=== PATIENT | female | born 1985 | race Two or more races ===

== ENCOUNTER 2017-09-12 05:07 | Inpatient (IN) | payer MEDICAID ==
[~2017-09-12 05:07] MED LIST: Lactated Ringers 1,000 ML IV SCH; Oxytocin/Lactated Ringers 10 UNIT/1,000 ML BAG IV SCH; Sodium Chloride 0.9% 10 ML Syringe FLUSH PRN
[2017-09-12] MEDS ORDERED: Metoclopramide 10 MG/2 ML SDV IVPUSH ONE (06:00)
[2017-09-12] MEDS ORDERED: Citric Acid/Sodium Citrate Solution 30 ML Cup PO ONE (06:00)
[2017-09-12] MEDS ORDERED: ceFAZolin 2 GM in Premix Bag 1 BAG IV ONE (06:00)
[2017-09-12] MEDS ORDERED: Diphtheria,Pertussis(Acell),Tetanus Vaccine 0.5 ML SDV IM ONE (06:29)
[2017-09-12] MEDS ORDERED: Bupivacaine 0.5% 30 ML SDV ONE (07:07)
[2017-09-12] MEDS ORDERED: Bupivacaine 0.75%/D5W 2 ML Amp ONE (07:15)
[2017-09-12] MEDS ORDERED: ceFAZolin 1 GM Vial ONE (07:16)
[2017-09-12] MEDS ORDERED: Morphine PF 10 MG/10 ML SDV ONE (07:16)
[2017-09-12] MEDS ORDERED: Oxytocin 10 Units/1 ML SDV ONE (07:19)
--- NOTE | 2017-09-12 07:42 | PCM.PREANE ---
Preanesthetic Assessment - Procedure Proposed Procedure: C. Section - Anesthesia/Transfusion/Family Hx Anesthesia History: Prior Anesthesia Without Reaction Family History of Anesthesia Reaction: No Transfusion History: No Prior Transfusion(s) Intubation History: Unknown - Review of Systems General: No Symptoms Pulmonary: No Symptoms Cardiovascular: No Symptoms Gastrointestinal: No Symptoms Neurological: No Symptoms Other: Reports: Diabetes (Gestational controlled with diet ) - Physical Assessment NPO Status Date: 09/11/17 NPO Status Time: 10:00 Pulse: 112 O2 Sat by Pulse Oximetry: 100 Respiratory Rate: 16 Vital Signs: Last Vital Signs Temp 36.9 C 09/12/17 01:26 Pulse Resp 16 09/12/17 01:26 BP 122/94 H 09/12/17 01:26 Pulse Ox 100 09/12/17 01:26 Height: 1.57 m Weight: 75.863 kg ASA Class: 2 Mental Status: Alert & Oriented x3 Airway Class: Mallampati = 1 Dentition: Reports: Normal Dentition Thyro-Mental Finger Breadths: 2 Mouth Opening Finger Breadths: 4 ROM/Head Extension: Full Lungs: Clear to Auscultation, Normal Respiratory Effort Cardiovascular: Regular Rate, Regular Rhythm - Allergies Allergies/Adverse Reactions: Allergies Allergy/AdvReac Type Severity Reaction Status Date / Time No Known Allergies Allergy Verified 09/12/17 01:25 - Blood Blood Available: No - Anesthesia Plan Pre-Op Medication Ordered: Antacids - Acknowledgements Anesthesia Type Planned: Spinal Pt an Appropriate Candidate for the Planned Anesthesia: Yes Alternatives and Risks of Anesthesia Discussed w Pt/Guardian: Yes Pt/Guardian Understands and Agrees with Anesthesia Plan: Yes PreAnesthesia Questionnaire Cardiovascular History: Reports: Hypertension 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: : 2 Para: 1 - HOME MEDS Home Medications: Home Meds Methyldopa 09/12/17 [History] Vit W-Ca,Fe,FA(<1 mg) [ Vitamins] 09/12/17 [History] - CURRENT (IN HOUSE) MEDS Current Meds: Current Medications Lactated Ringer's (Ringers, Lactated) 1,000 mls @ 125 mls/hr IV ASDIRECTED FER Oxytocin/Lactated Ringer's (Pitocin In Lr 10 Units/1,000 Ml) 10 unit in 1,000 mls @ 100 mls/hr IV ASDIRECTED FER; Protocol Sodium Chloride (Saline Flush) 10 ml FLUSH ASDIRECTED PRN PRN Reason: Keep Vein Open Discontinued Medications Bupivacaine HCl (Marcaine 0.5%) Confirm Administered Dose 30 ml .ROUTE .STK-MED ONE Stop: 09/12/17 07:08 Bupivacaine HCl/Dextrose (Marcaine 0.75% Spinal) Confirm Administered Dose 2 ml .ROUTE .STK-MED ONE Stop: 09/12/17 07:16 Cefazolin Sodium (Ancef) Confirm Administered Dose 2 gm .ROUTE .STK-MED ONE Stop: 09/12/17 07:17 Citric Acid/Sodium Citrate (Bicitra Solution) 30 ml PO ONETIME ONE Stop: 09/12/17 06:01 Diphtheria/Tetanus/Acell Pertussis (Adacel) 0.5 ml IM .ONCE ONE Stop: 09/12/17 06:30 Cefazolin Sodium/Dextrose 2 gm (/ Premix) 50 mls @ 100 mls/hr IV ONETIME ONE Stop: 09/12/17 06:29 Metoclopramide HCl (Reglan) 10 mg IVPUSH ONETIME ONE Stop: 09/12/17 06:01 Morphine Sulfate (Duramorph Pf) Confirm Administered Dose 10 mg .ROUTE .STK-MED ONE Stop: 09/12/17 07:17 Oxytocin (Pitocin) Confirm Administered Dose 20 unit .ROUTE .STK-MED ONE Stop: 09/12/17 07:20
[2017-09-12] MEDS ORDERED: Phenylephrine/Normal Saline 100 MCG/ML 10 ML Syringe ONE (08:10)
[2017-09-12] MEDS ORDERED: Ondansetron 4 MG/2 ML SDV ONE (08:10)
[2017-09-12] MEDS ORDERED: Ketorolac 30 MG/ML SDV ONE (08:15)
[2017-09-12] MEDS ORDERED: Lactated Ringers 1,000 ML ONE ×2 (08:38)
[2017-09-12] MEDS ORDERED: diphenhydrAMINE 50 MG/ML SDV IVPUSH PRN ×2 (09:03→12:56)
[2017-09-12] MEDS ORDERED: Ondansetron 4 MG/2 ML SDV IVPUSH PRN (09:03)
--- NOTE | 2017-09-12 09:03 | PCM.POSTAN ---
POST ANESTHESIA ASSESSMENT - MENTAL STATUS Mental Status: Alert - VITAL SIGNS Pulse Rate: 79 SaO2: 99 Resp Rate: 17 Blood Pressure: 113/60 Temperature: 97.4 C - RESPIRATORY Respiratory Status: Respiratory Rate WNL, Airway Patent, O2 Saturation Stable - CARDIOVASCULAR CV Status: Pulse Rate WNL, Blood Pressure Stable - GASTROINTESTINAL GI Status: No Symptoms - PAIN Pain Score: 0 - POST OP HYDRATION Hydration Status: Adequate & Stable
--- NOTE | 2017-09-12 09:08 | PCM.OPNOTE ---
- General Post-Op/Procedure Note Date of Surgery/Procedure: 09/12/17 Operative Procedure(s): repeat Findings: Viable female, weight 6#7oz, 8/9 at 0840 Pre Op Diagnosis: gestational diabetes, hypertension Post-Op Diagnosis: Same Anesthesia Technique: Spinal Primary Surgeon: Ada Ortiz Bat Carrier: Olman Oreilly Fluid Replacement, Intraop: 1,500 Output, Urine Amount: 50 EBL in mLs: 800 Complications: None Condition: Good Free Text/Narrative:: The patient was taken to the operating room where spinal anesthesia was initiated and dosed to surgical levels without difficulty. The patient was prepped and draped in the usual sterile fashion in the dorsal supine position with a leftward tilt. A Pfannenstiel skin incision was made with the scalpel and carried through to the underlying layer of fascia. The fascia was incised in the midline and extended laterally using Mckenzie scissors. Hamlet clamps were used to elevate the superior aspect of the fascial incision, which was elevated , and the underlying rectus muscles were dissected off bluntly and using Mckenzie scissors. Attention was then turned to the inferior aspect of the fascial incision, which in similar fashion was grasped with Hamlet clamps, elevated, and the underlying rectus muscles were dissected off bluntly and using the mckenzie. The rectus muscles were dissected in the midline. The peritoneum was entered bluntly; this incision was extended superiorly and inferiorly with good visualization of the bladder. The bladder blade was inserted. The vesicouterine peritoneum was identified and entered sharply using Metzenbaum scissors. This incision was extended laterally and the bladder flap was created digitally. The bladder blade was reinserted. The lower uterine segment was incised in a transverse fashion using the scalpel and with digital traction. Clear fluid was noted. The was subsequently delivered by flexing the head to the incision. Body and shoulders followed without difficulty. The cord was clamped and cut. The was subsequently handed to the awaiting extruding machine operator whose presence had been requested.. The placenta was delivered spontaneously intact with a three-vessel cord noted. The uterus was exteriorized and cleared of all clots and debris. The uterine incision was repaired in 2 layers using 0 monocryl. Hemostasis was visualized. Hemostasis was visualized bilaterally. The uterus was returned to the abdomen. The uterine incision was reexamined and it was noted to be hemostatic. The pelvis was copiously irrigated. The fascia was closed with 1 PDS suture, and the skin was closed with 3-0 monocryl. Sponge, lap, and instrument counts were correct x2. The patient was stable at the completion of the procedure and was subsequently transferred to the recovery room in stable condition.
[2017-09-12] MEDS ORDERED: Lanolin 100% Cream 7 GM Tube TOP PRN (12:56)
[2017-09-12] MEDS ORDERED: Acetaminophen/oxyCODONE 325-5 MG Tab PO PRN (12:56)
[2017-09-12] MEDS ORDERED: Naloxone 0.4 MG/ML SDV IVPUSH PRN (12:56)
[2017-09-12] MEDS ORDERED: Dextrose 5%-Lactated Ringers 1,000 ML IV SCH (12:56)
[2017-09-12] MEDS ORDERED: ePHEDrine 50 MG/ML SDV IVPUSH PRN (12:56)
[2017-09-12] MEDS: Ketorolac 30 MG/ML SDV IVPUSH SCH ×2 (15:14→21:03)
[2017-09-13] MEDS: Ketorolac 30 MG/ML SDV IVPUSH SCH (03:01)
--- NOTE | 2017-09-13 07:24 | PCM.PNPP ---
- General Info Date of Service: 09/13/17 Functional Status: Reports: Pain Controlled, Tolerating Diet - Review of Systems General: Reports: No Symptoms HEENT: Reports: No Symptoms Pulmonary: Reports: No Symptoms Cardiovascular: Reports: No Symptoms Gastrointestinal: Reports: No Symptoms Genitourinary: Reports: No Symptoms Musculoskeletal: Reports: No Symptoms Skin: Reports: No Symptoms Neurological: Reports: No Symptoms Psychiatric: Reports: No Symptoms - General Info Date of Service: 09/13/17 - Patient Data Vital Signs - Most Recent: Last Vital Signs Temp 36.8 C 09/13/17 03:06 Pulse 84 09/13/17 03:06 Resp 16 09/13/17 06:51 BP 128/87 09/13/17 03:06 Pulse Ox 99 09/13/17 06:51 Weight - Most Recent: 75.863 kg I&O - Last 24 Hours: Intake & Output 09/12/17 09/13/17 09/13/17 22:59 06:59 14:59 Intake Total 1740 Output Total 50 Balance 1690 Lab Results - Last 24 Hours: Laboratory Results - last 24 hr 09/13/17 Range/Units 06:10 WBC 8.28 (3.98-10.04) K/mm3 RBC 3.14 L (3.98-5.22) M/mm3 Hgb 8.8 L (11.2-15.7) gm/L Hct 27.8 L (34.1-44.9) % MCV 88.5 (79.4-94.8) fl MCH 28.0 (25.6-32.2) pg MCHC 31.7 L (32.2-35.5) g/dl RDW Std Deviation 46.3 (36.4-46.3) fL Plt Count 183 (182-369) K/mm3 MPV 12.3 (9.4-12.3) fl Neut % (Auto) 65.3 (34.0-71.1) % Lymph % (Auto) 26.8 (19.3-51.7) % Arthur % (Auto) 6.8 (4.7-12.5) % Eos % (Auto) 0.6 L (0.7-5.8) Baso % (Auto) 0.4 (0.1-1.2) % Neut # (Auto) 5.41 (1.56-6.13) K/mm3 Lymph # (Auto) 2.22 (1.18-3.74) K/mm3 Arthur # (Auto) 0.56 H (0.24-0.36) K/mm3 Eos # (Auto) 0.05 (0.04-0.36) K/mm3 Baso # (Auto) 0.03 (0.01-0.08) K/mm3 Med Orders - Current: Current Medications Diphenhydramine HCl (Benadryl) 25 mg IVPUSH Q6H PRN PRN Reason: Itching or Nausea Emollient Ointment (Lansinoh Hpa) 0 gm TOP ASDIRECTED PRN PRN Reason: Sore Nipples Ephedrine Sulfate (Ephedrine Sulfate) 5 mg IVPUSH SEECOMMENT PRN PRN Reason: Other Ibuprofen (Motrin) 600 mg PO Q6H PRN PRN Reason: mild pain or fever Naloxone HCl (Narcan) 0.1 mg IVPUSH SEECOMMENT PRN PRN Reason: Respiratory Depression Oxycodone/Acetaminophen (Percocet 325-5 Mg) 2 tab PO Q6H PRN PRN Reason: Pain (moderate 4-6) Discontinued Medications Bupivacaine HCl (Marcaine 0.5%) Confirm Administered Dose 30 ml .ROUTE .STK-MED ONE Stop: 09/12/17 07:08 Last Admin: 09/12/17 08:13 Dose: 20 ml Bupivacaine HCl/Dextrose (Marcaine 0.75% Spinal) Confirm Administered Dose 2 ml .ROUTE .STK-MED ONE Stop: 09/12/17 07:16 Cefazolin Sodium (Ancef) Confirm Administered Dose 2 gm .ROUTE .STK-MED ONE Stop: 09/12/17 07:17 Citric Acid/Sodium Citrate (Bicitra Solution) 30 ml PO ONETIME ONE Stop: 09/12/17 06:01 Last Admin: 09/13/17 01:26 Dose: Not Given Diphenhydramine HCl (Benadryl) 12.5 mg IVPUSH Q6H PRN PRN Reason: pruritis Stop: 09/12/17 11:30 Diphtheria/Tetanus/Acell Pertussis (Adacel) 0.5 ml IM .ONCE ONE Stop: 09/12/17 06:30 Cefazolin Sodium/Dextrose 2 gm (/ Premix) 50 mls @ 100 mls/hr IV ONETIME ONE Stop: 09/12/17 06:29 Last Admin: 09/13/17 01:26 Dose: Not Given Lactated Ringer's (Ringers, Lactated) 1,000 mls @ 125 mls/hr IV ASDIRECTED [facility] Oxytocin/Lactated Ringer's (Pitocin In Lr 10 Units/1,000 Ml) 10 unit in 1,000 mls @ 100 mls/hr IV ASDIRECTED [facility]; Protocol Lactated Ringer's (Ringers, Lactated) Confirm Administered Dose 1,000 mls @ as directed .ROUTE .STK-MED ONE Stop: 09/12/17 08:39 Lactated Ringer's (Ringers, Lactated) Confirm Administered Dose 1,000 mls @ as directed .ROUTE .STK-MED ONE Stop: 09/12/17 08:39 Dextrose/Lactated Ringer's (Dextrose 5%-Lactated Ringers) 1,000 mls @ 125 mls/ hr IV ASDIRECTED [facility] Stop: 09/12/17 20:55 Last Admin: 09/12/17 16:11 Dose: 125 mls/hr Ketorolac Tromethamine (Toradol) Confirm Administered Dose 30 mg .ROUTE .STK- MED ONE Stop: 09/12/17 08:16 Ketorolac Tromethamine (Toradol) 30 mg IVPUSH Q6H [facility] Stop: 09/13/17 03:01 Last Admin: 09/13/17 03:01 Dose: 30 mg Lidocaine HCl (Xylocaine-Mpf 1%) 5 ml .ROUTE .STK-MED ONE Stop: 09/12/17 07:18 Metoclopramide HCl (Reglan) 10 mg IVPUSH ONETIME ONE Stop: 09/12/17 06:01 Last Admin: 09/13/17 01:26 Dose: Not Given Morphine Sulfate (Duramorph Pf) Confirm Administered Dose 10 mg .ROUTE .STK-MED ONE Stop: 09/12/17 07:17 Ondansetron HCl (Zofran) Confirm Administered Dose 4 mg .ROUTE .STK-MED ONE Stop: 09/12/17 08:11 Ondansetron HCl (Zofran) 4 mg IVPUSH ONETIME PRN PRN Reason: Nausea/Vomiting Stop: 09/12/17 11:30 Oxytocin (Pitocin) Confirm Administered Dose 20 unit .ROUTE .STK-MED ONE Stop: 09/12/17 07:20 Phenylephrine HCl (Phenylephrine In Ns 100 Mcg/Ml) Confirm Administered Dose 1 mg .ROUTE .STK-MED ONE Stop: 09/12/17 08:11 Sodium Chloride (Saline Flush) 10 ml FLUSH ASDIRECTED PRN PRN Reason: Keep Vein Open - Interaction Infant Disposition, : at Bedside Support Person: Significant Other - Recovery Exam Fundal Tone: Firm Fundal Level: At Umbilicus Fundal Placement: Midline Lochia Amount: Small Lochia Color: Rubra/Red Perineum Description: Intact, Minimal Bruising/Swelling Episiotomy/Laceration: None Bladder Status: Indwelling Catheter in Place - Exam General: Alert, Oriented HEENT: Pupils Equal Neck: Supple Lungs: Clear to Auscultation, Normal Respiratory Effort Cardiovascular: Regular Rate, Regular Rhythm GI/Abdominal Exam: Normal Bowel Sounds, Soft, Non-Tender, No Organomegaly, No Distention, No Abnormal Bruit, No Mass, Pelvis Stable Extremities: Normal Inspection, Normal Range of Motion, Non-Tender, No Pedal Edema, Normal Capillary Refill Skin: Warm, Dry, Intact Wound/Incisions: Healing Well Neurological: No New Focal Deficit Psy/Mental Status: Alert, Normal Affect, Normal Mood - Problem List Review Problem List Initiated/Reviewed/Updated: Yes - My Orders Last 24 Hours: My Active Orders 09/12/17 06:30 Vaccines to be Administered [RC] PER UNIT ROUTINE 09/12/17 12:56 Communication Order [RC] PER UNIT ROUTINE Communication Order [RC] PER UNIT ROUTINE Communication Order [RC] PER UNIT ROUTINE Notify Provider Intake and Out [RC] ASDIRECTED Vital Signs [RC] 03,09,15,21 Acetaminophen/oxyCODONE [Percocet 325-5 MG] 2 tab PO Q6H PRN Lanolin [Lansinoh HPA] See Dose Instructions TOP ASDIRECTED PRN Naloxone [Narcan] 0.1 mg IVPUSH SEECOMMENT PRN diphenhydrAMINE [Benadryl] 25 mg IVPUSH Q6H PRN ePHEDrine [ePHEDrine Sulfate] 5 mg IVPUSH SEECOMMENT PRN Assess Lochia [WOMSER] Per Unit Routine Assess Uterine Involution [WOMSER] Per Unit Routine Medication Administration Instruction [OM.PC] Routine 09/12/17 Lunch Regular Diet [DIET] 09/13/17 08:56 Urinary Catheter Removal [RC] Per Unit Routine 09/13/17 09:00 Ibuprofen [Motrin] 600 mg PO Q6H PRN - Assessment Assessment:: POD1 Doing great. Jimenez out this am Continue regular diet. Blood pressures good off meds so can continue without for now. Anticipate home tomorrow
[2017-09-13] MEDS ORDERED: Ibuprofen 600 MG Tab PO PRN (09:00)
--- NOTE | 2017-09-13 21:27 | PCM48HPAN ---
Post Anesthesia Note - EVALUATION WITHIN 48HRS OF ANESTHETIC Vital Signs in Normal Range: Yes Patient Participated in Evaluation: Yes Respiratory Function Stable: Yes Airway Patent: Yes Cardiovascular Function Stable: Yes Hydration Status Stable: Yes Pain Control Satisfactory: Yes Nausea and Vomiting Control Satisfactory: Yes Mental Status Recovered: Yes Pulse Rate: 98 Resp Rate: 16 Temperature: 36.6 C Blood Pressure: 135/84
--- NOTE | 2017-09-14 06:59 | PCM.DCSUM1 ---
Discharge Summary - Discharge Data Discharge Date: 09/14/17 Discharge Disposition: Home, Self-Care 01 Condition: Good - Patient Summary/Data Operative Procedure(s) Performed: repeat - Patient Instructions Diet: Usual Diet as Tolerated Activity: No Strenuous Activities Activity, Other: pelvic rest Driving: May Drive Today Notify Provider of: Fever, Increased Pain - Discharge Plan Home Medications: Home Meds Methyldopa 09/12/17 [History] Vit W-Ca,Fe,FA(<1 mg) [ Vitamins] 09/12/17 [History] Patient Handouts: Exclusive , Delivery, Care After, Breast Engorgement Referrals: Ada Ortiz MD [Physician] - (2 weeks and 6 weeks) - Patient Data Vitals - Most Recent: Last Vital Signs Temp 36.6 C 09/14/17 03:00 Pulse 98 09/13/17 21:27 Resp 16 09/14/17 03:00 BP 117/72 09/14/17 03:00 Pulse Ox 99 09/14/17 03:00 Weight - Most Recent: 75.863 kg I&O - Last 24 hours: Intake & Output 09/13/17 09/13/17 09/14/17 14:59 22:59 06:59 Intake Total 120 120 Balance 120 120 Med Orders - Current: Current Medications Diphenhydramine HCl (Benadryl) 25 mg IVPUSH Q6H PRN PRN Reason: Itching or Nausea Emollient Ointment (Lansinoh Hpa) 0 gm TOP ASDIRECTED PRN PRN Reason: Sore Nipples Ephedrine Sulfate (Ephedrine Sulfate) 5 mg IVPUSH SEECOMMENT PRN PRN Reason: Other Ibuprofen (Motrin) 600 mg PO Q6H PRN PRN Reason: mild pain or fever Naloxone HCl (Narcan) 0.1 mg IVPUSH SEECOMMENT PRN PRN Reason: Respiratory Depression Oxycodone/Acetaminophen (Percocet 325-5 Mg) 2 tab PO Q6H PRN PRN Reason: Pain (moderate 4-6) Discontinued Medications Bupivacaine HCl (Marcaine 0.5%) Confirm Administered Dose 30 ml .ROUTE .STK-MED ONE Stop: 09/12/17 07:08 Last Admin: 09/12/17 08:13 Dose: 20 ml Bupivacaine HCl/Dextrose (Marcaine 0.75% Spinal) Confirm Administered Dose 2 ml .ROUTE .STK-MED ONE Stop: 09/12/17 07:16 Cefazolin Sodium (Ancef) Confirm Administered Dose 2 gm .ROUTE .[facility]-MED ONE Stop: 09/12/17 07:17 Citric Acid/Sodium Citrate (Bicitra Solution) 30 ml PO ONETIME ONE Stop: 09/12/17 06:01 Last Admin: 09/13/17 01:26 Dose: Not Given Diphenhydramine HCl (Benadryl) 12.5 mg IVPUSH Q6H PRN PRN Reason: pruritis Stop: 09/12/17 11:30 Diphtheria/Tetanus/Acell Pertussis (Adacel) 0.5 ml IM .ONCE ONE Stop: 09/12/17 06:30 Last Admin: 09/13/17 17:53 Dose: Not Given Cefazolin Sodium/Dextrose 2 gm (/ Premix) 50 mls @ 100 mls/hr IV ONETIME ONE Stop: 09/12/17 06:29 Last Admin: 09/13/17 01:26 Dose: Not Given Lactated Ringer's (Ringers, Lactated) 1,000 mls @ 125 mls/hr IV ASDIRECTED [facility] Oxytocin/Lactated Ringer's (Pitocin In Lr 10 Units/1,000 Ml) 10 unit in 1,000 mls @ 100 mls/hr IV ASDIRECTED [facility]; Protocol Lactated Ringer's (Ringers, Lactated) Confirm Administered Dose 1,000 mls @ as directed .ROUTE .[facility]-MED ONE Stop: 09/12/17 08:39 Lactated Ringer's (Ringers, Lactated) Confirm Administered Dose 1,000 mls @ as directed .ROUTE .[facility]-MED ONE Stop: 09/12/17 08:39 Dextrose/Lactated Ringer's (Dextrose 5%-Lactated Ringers) 1,000 mls @ 125 mls/ hr IV ASDIRECTED [facility] Stop: 09/12/17 20:55 Last Admin: 09/12/17 16:11 Dose: 125 mls/hr Ketorolac Tromethamine (Toradol) Confirm Administered Dose 30 mg .ROUTE .[facility]- MED ONE Stop: 09/12/17 08:16 Ketorolac Tromethamine (Toradol) 30 mg IVPUSH Q6H [facility] Stop: 09/13/17 03:01 Last Admin: 09/13/17 03:01 Dose: 30 mg Lidocaine HCl (Xylocaine-Mpf 1%) 5 ml .ROUTE .STK-MED ONE Stop: 09/12/17 07:18 Metoclopramide HCl (Reglan) 10 mg IVPUSH ONETIME ONE Stop: 09/12/17 06:01 Last Admin: 09/13/17 01:26 Dose: Not Given Morphine Sulfate (Duramorph Pf) Confirm Administered Dose 10 mg .ROUTE .STK-MED ONE Stop: 09/12/17 07:17 Ondansetron HCl (Zofran) Confirm Administered Dose 4 mg .ROUTE .STK-MED ONE Stop: 09/12/17 08:11 Ondansetron HCl (Zofran) 4 mg IVPUSH ONETIME PRN PRN Reason: Nausea/Vomiting Stop: 09/12/17 11:30 Oxytocin (Pitocin) Confirm Administered Dose 20 unit .ROUTE .STK-MED ONE Stop: 09/12/17 07:20 Phenylephrine HCl (Phenylephrine In Ns 100 Mcg/Ml) Confirm Administered Dose 1 mg .ROUTE .STK-MED ONE Stop: 09/12/17 08:11 Sodium Chloride (Saline Flush) 10 ml FLUSH ASDIRECTED PRN PRN Reason: Keep Vein Open
== END 2017-09-14 10:20 | disposition home or self-care (01) | DRG 765 ==
LOC: JD.OB 05:31
PROVIDERS: ADMIT Obstetrics & Gynecology; ATTEND Obstetrics & Gynecology
PROC: 10D00Z1 Extraction of Products of Conception, Low, Open Approach (ICD-10-PCS; principal; 2017-09-12)
DX: O34.219 Maternal care for unspecified type scar from previous cesarean delivery (principal); O10.02 Pre-existing essential hypertension complicating childbirth; Z37.0 Single live birth; N85.8 Other specified noninflammatory disorders of uterus; Z3A.37 37 weeks gestation of pregnancy; O24.420 Gestational diabetes mellitus in childbirth, diet controlled
CPT/HCPCS: 01961; 36415; 59025; 85025; 94762; J0690; J1885; J2270; J2405; J2590; J7042; J7120